=== PATIENT | male | born 1950 | race Caucasian/White ===

== ENCOUNTER 2022-04-06 14:06 | Inpatient (IN) | payer MEDICARE ==
[~2022-04-06] VITALS: Ht 167.6 cm; Wt 68.1 kg
[2022-04-06 14:18] VITALS: BP 173/83
[2022-04-06 14:25] VITALS: BP 185/71
[2022-04-06 14:33] LABS: HEMATOCRIT 37.6 % (42.0-52.0); MEAN CORPUSCULAR HGB 28.9 pg (27.0-31.0); MEAN CORPUSCULAR HGB CONC 32.2 g/dl (33.0-37.0); PLATELET COUNT AUTOMATED 280 10*3/uL (130-400); RED BLOOD COUNT 4.18 10*6/uL (4.50-5.90); RED CELL DISTRI WIDTH 12.9 % (0-14.5); WHITE BLOOD COUNT 16.2 10*3/uL (4.8-10.8)
[2022-04-06 14:36] LABS: MANUAL DIFF REFLEX YES
[2022-04-06 14:52] LABS: CREATININE 1.56 mg/dL (0.70-1.30); POTASSIUM 3.1 mmol/L (3.5-5.1); TOTAL PROTEIN 7.5 gm/dL (6.4-8.2)
[2022-04-06 14:59] LABS: ATYPICAL LYMPHS 1 % (0-0); PLATELET SUFFICIENCY NORMAL (NORMAL); TOTAL CELLS COUNTED 100 #CELLS
[2022-04-06 19:59] VITALS: BP 177/91
[2022-04-06 23:00] VITALS: BP 167/71
[2022-04-07] VITALS (13 sets, daily range): BP systolic 111–166; BP diastolic 58–99
[2022-04-07 06:28] LABS: BASO % 0.1 % (0.0-1.0); HEMATOCRIT 37.1 % (42.0-52.0); LYMPH % 8.5 % (27.0-41.0); MEAN CELL VOLUME 89.4 fl (80.0-94.0); MEAN CORPUSCULAR HGB 29.6 pg (27.0-31.0); MEAN CORPUSCULAR HGB CONC 33.2 g/dl (33.0-37.0); MEAN PLATELET VOLUME 9.9 fl (9.6-12.3); MONO # 1.1 10*3/uL (0.1-1.0); MONO % 9.8 % (3.0-9.0); NEUT # 9.1 10*3/uL (2.3-7.9); NEUT % 80.5 % (47.0-73.0); PLATELET COUNT AUTOMATED 243 10*3/uL (130-400); RED BLOOD COUNT 4.15 10*6/uL (4.50-5.90); RED CELL DISTRI WIDTH 13.2 % (0-14.5); WHITE BLOOD COUNT 11.3 10*3/uL (4.8-10.8)
[2022-04-07 06:38] LABS: INTERNATIONAL NORM RATIO 1.1 (2.0-3.5)
[2022-04-07 06:54] LABS: BUN 16 mg/dl (7-24); CHLORIDE 106 mmol/L (98-107); CREATININE 0.95 mg/dL (0.70-1.30); SGOT/AST 15 IU/L (3-35); SGPT/ALT 28 U/L (12-78); SODIUM 137 mmol/L (136-145)
[2022-04-07 06:55] LABS: ALKALINE PHOSPHATASE 138 U/L (45-117); TOTAL PROTEIN 6.4 gm/dL (6.4-8.2)
[2022-04-07] MEDS ORDERED: VITAMIN D350 MC2 PO (08:06)
[2022-04-07] MEDS ORDERED: ZYRTEC10 M3 PO (08:07)
[2022-04-08] VITALS: BP 133/70
[2022-04-08 06:38] LABS: BASO # 0.1 10*3/uL (0.0-0.1); BASO % 0.3 % (0.0-1.0); HEMATOCRIT 38.3 % (42.0-52.0); LYMPH % 10.7 % (27.0-41.0); MEAN CELL VOLUME 89.9 fl (80.0-94.0); MEAN CORPUSCULAR HGB 29.6 pg (27.0-31.0); MEAN CORPUSCULAR HGB CONC 32.9 g/dl (33.0-37.0); MEAN PLATELET VOLUME 10.2 fl (9.6-12.3); MONO # 1.3 10*3/uL (0.1-1.0); MONO % 6.9 % (3.0-9.0); NEUT # 14.8 10*3/uL (2.3-7.9); NEUT % 80.5 % (47.0-73.0); RED BLOOD COUNT 4.26 10*6/uL (4.50-5.90); RED CELL DISTRI WIDTH 13.2 % (0-14.5); WHITE BLOOD COUNT 18.4 10*3/uL (4.8-10.8)
[2022-04-08 06:43] LABS: PLATELET COUNT AUTOMATED 376 10*3/uL (130-400)
[2022-04-08 06:45] LABS: BUN 18 mg/dl (7-24); CHLORIDE 104 mmol/L (98-107); POTASSIUM 3.7 mmol/L (3.5-5.1); SODIUM 138 mmol/L (136-145)
[2022-04-08 08:00] VITALS: BP 119/59
[2022-04-08] MEDS ORDERED: AUGMENTIN 875-875 MG PO (11:00)
[2022-04-08] MEDS ORDERED: COLACE100 MG PO (11:00)
[2022-04-08] MEDS ORDERED: HYDROCODONE-AC1 EAC1 PO (11:00)
[2022-04-08] MEDS ORDERED: ZOFRAN4 MG PO (11:00)
== END 2022-04-08 14:00 | disposition home or self-care (01) | DRG 853 ==
LOC: ED 14:06 → EDHOLD 17:26 → 4E 17:26
PROVIDERS: Internal Medicine; Physical Therapist; Student in an Organized Health Care Education/Training Program; ADMIT Emergency Medicine; ATTEND Emergency Medicine
PROC: 0FT44ZZ Resection of Gallbladder, Percutaneous Endoscopic Approach (ICD-10-PCS; principal; 2022-04-07)
PROC: 3E0T3BZ Introduction of Anesthetic Agent into Peripheral Nerves and Plexi, Percutaneous Approach (ICD-10-PCS; 2022-04-07)
PROC: 3E0T33Z Introduction of Anti-inflammatory into Peripheral Nerves and Plexi, Percutaneous Approach (ICD-10-PCS; 2022-04-07)
DX: A41.9 Sepsis, unspecified organism (principal); N17.0 Acute kidney failure with tubular necrosis; E44.1 Mild protein-calorie malnutrition; E87.2 Acidosis; K80.00 Calculus of gallbladder with acute cholecystitis without obstruction; K82.A2 Perforation of gallbladder in cholecystitis; R65.20 Severe sepsis without septic shock; N40.0 Benign prostatic hyperplasia without lower urinary tract symptoms; D64.9 Anemia, unspecified; R03.0 Elevated blood-pressure reading, without diagnosis of hypertension; E87.6 Hypokalemia; R73.9 Hyperglycemia, unspecified; K44.9 Diaphragmatic hernia without obstruction or gangrene; K57.30 Diverticulosis of large intestine without perforation or abscess without bleeding; E55.9 Vitamin D deficiency, unspecified; J30.2 Other seasonal allergic rhinitis; Z82.49 Family history of ischemic heart disease and other diseases of the circulatory system; Z83.3 Family history of diabetes mellitus; Z79.899 Other long term (current) drug therapy; Z68.24 Body mass index [BMI] 24.0-24.9, adult; K82.A1 Gangrene of gallbladder in cholecystitis

== ENCOUNTER 2025-07-21 20:30 | Observation (INO) | payer MEDICARE ==
[~2025-07-21] VITALS: Ht 170.2 cm; Wt 71.2 kg
[~2025-07-21 20:30] MED LIST: AUGMENTIN 875-875 MG PO; COLACE100 MG PO; HYDROCODONE-AC1 EAC1 PO; VITAMIN D350 MC2 PO; ZOFRAN4 MG PO; ZYRTEC10 M3 PO
[2025-07-21 20:41] VITALS: BP 143/63
[2025-07-21 21:25] LABS: BASO # 0.0 10*3/uL (0.0-0.1); BASO % 0.3 % (0.0-1.0); EOS # 0.1 10*3/uL (0.0-0.4); EOS % 1.6 % (1.0-4.0); MEAN CELL VOLUME 92.9 fl (80.0-94.0); MEAN CORPUSCULAR HGB 29.8 pg (27.0-31.0); MEAN PLATELET VOLUME 8.6 fl (9.6-12.3); MONO # 0.6 10*3/uL (0.1-1.0); MONO % 9.0 % (3.0-9.0); NEUT # 4.1 10*3/uL (2.3-7.9); NEUT % 59.2 % (47.0-73.0); NUCLEATED RED BLOOD CELL 0.0 % (0.0-0.0); NUCLEATED RED BLOOD CELL 0.0 10*3/uL (0.0-0.0); PLATELET COUNT AUTOMATED 161 10*3/uL (130-400); RED CELL DISTRI WIDTH 12.6 % (0-14.5)
[2025-07-21 21:47] LABS: BUN 15 mg/dl (9-23)
[2025-07-21] MEDS ORDERED: SODIUM CHLORIDE 0.9% 1,000 ML IV ONE (22:25)
[2025-07-21 23:09] LABS: BILIRUBIN Negative (Negative); BLOOD Negative (Negative); CLARITY Clear (Clear); COLOR Yellow (Yellow); KETONE 1+ (Negative); LEUKO ESTERASE Trace (Negative); NITRITE Negative (Negative); PH 5.5 (4.5-8.0); SPECIFIC GRAVITY 1.015 (1.001-1.030); UROBILINOGEN 1.0 E.U./dl (0.0-1.0)
[2025-07-21 23:32] LABS: MUCOUS 1+; RBC 0-2 rbc/hpf (0-2)
[2025-07-22 01:19] VITALS: BP 133/68
[2025-07-22 01:40] VITALS: BP 155/56
[2025-07-22] MEDS ORDERED: BISACODYL 5 MG TAB PO PRN (02:15)
[2025-07-22] MEDS ORDERED: TEMAZEPAM 15 MG CAP PO PRN (02:15)
[2025-07-22] MEDS ORDERED: Ondansetron Hydrochloride 4 MG/2 ML VIAL IV PRN (02:15)
[2025-07-22] MEDS ORDERED: ACETAMINOPHEN 325 MG TAB PO PRN (02:15)
[2025-07-22] MEDS ORDERED: Acetaminophen/Hydrocodone 5 MG/325 MG TABLET PO PRN (02:15)
[2025-07-22] MEDS ORDERED: BISACODYL 10 MG SUPP R PRN (02:15)
[2025-07-22] MEDS ORDERED: ACETAMINOPHEN 650 MG SUPP R PRN (02:15)
[2025-07-22 06:10] LABS: BASO # 0.0 10*3/uL (0.0-0.1); BASO % 0.3 % (0.0-1.0); EOS # 0.1 10*3/uL (0.0-0.4); EOS % 1.8 % (1.0-4.0); MEAN CELL VOLUME 92.6 fl (80.0-94.0); MEAN CORPUSCULAR HGB 30.0 pg (27.0-31.0); MEAN PLATELET VOLUME 8.8 fl (9.6-12.3); MONO # 0.5 10*3/uL (0.1-1.0); MONO % 8.6 % (3.0-9.0); NEUT # 2.5 10*3/uL (2.3-7.9); NEUT % 41.0 % (47.0-73.0); NUCLEATED RED BLOOD CELL 0.0 % (0.0-0.0); NUCLEATED RED BLOOD CELL 0.0 10*3/uL (0.0-0.0); PLATELET COUNT AUTOMATED 144 10*3/uL (130-400); RED CELL DISTRI WIDTH 12.8 % (0-14.5)
[2025-07-22 07:04] LABS: BUN 13 mg/dl (9-23); FREE T4 1.18 ng/dl (0.89-1.76); LDL CHOLESTEROL 105 mg/dL (9-159); SGPT/ALT 25 U/L (5-49)
[2025-07-22 08:00] VITALS: BP 136/62
[2025-07-22 10:04] LABS: VITAMIN D, 25-HYDROXY 44.5 ng/mL (30-100)
[2025-07-22 12:00] VITALS: BP 138/61
== END 2025-07-22 13:00 | disposition home or self-care (01) ==
LOC: ED 20:30 → EDHOLD 07-22 00:24 → 4E 07-22 00:24
PROVIDERS: Emergency Medicine; Student in an Organized Health Care Education/Training Program; ADMIT Internal Medicine; ATTEND Internal Medicine
DX: G90.9 Disorder of the autonomic nervous system, unspecified (principal); D64.9 Anemia, unspecified; I51.7 Cardiomegaly; E86.0 Dehydration; E55.9 Vitamin D deficiency, unspecified; R00.1 Bradycardia, unspecified; Z79.899 Other long term (current) drug therapy

== ENCOUNTER → 2025-09-29 | Outpatient (CLI) | payer MEDICARE | END | disposition home or self-care (01) | LOC: US 10:19 | PROVIDERS: ATTEND Family Medicine | DX: I70.201 Unspecified atherosclerosis of native arteries of extremities, right leg (principal) ==